=== PATIENT | male | born 1980 | race Caucasian/White ===

== ENCOUNTER 2022-01-07 21:10 | Emergency (ER) | payer BC ==
[~2022-01-07] VITALS: Ht 180.3 cm; Wt 83.9 kg
[2022-01-07] MEDS ORDERED: Amoxicillin875 MG PO (23:19)
[2022-01-07] MEDS ORDERED: Ventolin/Prove6.7 GM INH (23:19)
[2022-01-07] MEDS ORDERED: QVAR REDIHALE10.6 G3 INH (23:19)
== END 2022-01-07 23:37 | disposition home or self-care (01) ==
LOC: ER 21:10
DX: S61.011A Laceration without foreign body of right thumb without damage to nail, initial encounter (principal); S61.032A Puncture wound without foreign body of left thumb without damage to nail, initial encounter; J45.909 Unspecified asthma, uncomplicated; W54.0XXA Bitten by dog, initial encounter; Z23 Encounter for immunization; Z88.5 Allergy status to narcotic agent; Z91.018 Allergy to other foods
CPT/HCPCS: 90714; A9270